=== PATIENT | female | born 1975 | race Caucasian/White ===

== ENCOUNTER 2021-09-05 12:12 | Outpatient (CLI) | payer OTHER, SELFPAY ==
--- NOTE | ~2021-09-05 | XR_ITS ---
[id number]_CR DATE: 09/05/2021 13:23 INDICATION: Neck pain TECHNIQUE: AP, open-mouth, odontoid, lateral, swimmer views COMPARISON: None FINDINGS: C1 and C2 are normally aligned and the odontoid process is intact. No fracture or dislocati on, locked facet or prevertebral soft tissue swelling. There is minimal anterolisthesis at C4-5. Minimal loss of height at C5-6 interspace. There is mild loss of interspace height and anterior spurring at C6-7. IMPRESSION: Minimal anterolisthesis at C4-5 Minimal loss of height of C5-6 interspace Mild degenerative disc disease at C6-7 Reviewed, dictated and finalized at [facility]. Reviewed, dictated and finalized at [facility].
== END 2021-09-05 12:13 ==
PROVIDERS: PCP Family Medicine; Visit Provider Nurse Practitioner Family
DX: M50.323 Other cervical disc degeneration at C6-C7 level (principal)
CPT/HCPCS: 72040

== ENCOUNTER 2024-01-23 15:01 | Outpatient (CLI) | payer OTHER, SELFPAY ==
--- NOTE | ~2024-01-23 | XR_ITS ---
XR hip BI wo pelvis DATE: 01/23/2024 15:15 INDICATION: Hip pain TECHNIQUE: AP and lateral views of each hip COMPARISON: None FINDINGS: Mild bilateral hip osteoporosis. No fracture or dislocation, avascular necrosis or bone rashel truction. Pubic symphysis and sacroiliac joints are intact. IMPRESSION: Mild bilateral hip osteoarthritis Reviewed, dictated and finalized at [facility].
== END 2024-01-23 15:02 | disposition home or self-care (01) ==
LOC: MICIMG 15:04
PROVIDERS: PCP Nurse Practitioner Family; Visit Provider Nurse Practitioner Family
DX: M16.0 Bilateral primary osteoarthritis of hip (principal)
CPT/HCPCS: 73521